=== PATIENT | male | born 1980 | race Caucasian/White ===

== ENCOUNTER 2017-07-05 08:29 | Emergency (ER) | payer MEDICAID ==
[2017-07-05 08:40] VITALS: BP 156/98
--- NOTE | 2017-07-05 09:03 | EDM.PDOC ---
ED HPI GENERAL MEDICAL PROBLEM - General Chief Complaint: ENT Problem Stated Complaint: ABSESS TOOTH LT SIDE Time Seen by Provider: 07/05/17 08:50 Source of Information: Reports: Patient History Limitations: Reports: No Limitations - History of Present Illness INITIAL COMMENTS - FREE TEXT/NARRATIVE: 37-year-old male developed left upper dental pain and swelling over the past 12- 24 hours. No fevers or chills, he does have until care and is currently waiting for several extractions and dentures. He is already on 10 mg hydrocodone 4 times daily for chronic pain. Onset: Gradual (Over the past 12-24 hours) Severity: Moderate Associated Symptoms: Reports: No Other Symptoms Tooth/Teeth Pain Score (Numeric/FACES): 6 - Related Data Allergies Allergy/AdvReac Type Severity Reaction Status Date / Time No Known Allergies Allergy Verified 07/05/17 08:47 Home Meds: Home Meds Melatonin 10 mg PO BEDTIME PRN 06/20/14 [History] [place]-3 Fatty Acids/Fish Oil [Fish Oil 1,200 mg Softgel] 1,200 mg PO DAILY 06/20 [History] Naproxen [Take Home: Naproxen 500 MG, 4 Tab Pack] 2 tab PO DAILY 03/08/16 [ History] Hydrocodone/Acetaminophen [Hydrocodon-Acetaminophn 10-325] 1 tab PO Q4H PRN 12/15 [History] Pregabalin [Lyrica] 100 mg PO BID 07/05/17 [History] Past Medical History - Past Health History Medical/Surgical History: Denies Medical/Surgical History Musculoskeletal History: Reports: Back Pain, Chronic Neurological History: Reports: Concussion Psychiatric History: Reports: Bipolar, Depression - Infectious Disease History Infectious Disease History: Reports: Chicken Pox - Past Surgical History HEENT Surgical History: Reports: Oral Surgery Social & Family History - Tobacco Use Smoking Status *Q: Current Every Day Smoker Years of Tobacco use: 19 Packs/Tins Daily: 1.5 Used Tobacco, but Quit: No Second Hand Smoke Exposure: Yes - Caffeine Use Caffeine Use: Reports: Coffee, Energy Drinks - Alcohol Use Days Per Week of Alcohol Use: 0 - Recreational Drug Use Recreational Drug Use: No Drug Use in Last 12 Months: Yes Recreational Drug Type: Reports: Marijuana/Hashish, Methamphetamine Recreational Drug Use Frequency: Binges ED ROS ENT - Review of Systems Review Of Systems: See Below Constitutional: Denies: Fever, Chills Respiratory: Denies: Shortness of Breath GI/Abdominal: Denies: Nausea, Vomiting Skin: Denies: Bruising, Erythema Neurological: Denies: Headache ED EXAM, ENT - Physical Exam Exam: See Below Exam Limited By: No Limitations General Appearance: Alert, No Apparent Distress (Patient is uncomfortable but not distressed) Mouth/Throat: Other (Patient has widespread advanced dental decay. There is erythema and irritation around the mucosa and gums of the left maxilla, a mild amount of ducal swelling and tenderness. No fluctuance or erythema.) Course - Vital Signs Last Recorded V/S: Last Vital Signs Temp 96.1 F 07/05/17 08:46 Pulse 88 07/05/17 08:46 Resp 16 07/05/17 08:46 BP 156/98 H 07/05/17 08:46 Pulse Ox 100 07/05/17 08:46 - Re-Assessments/Exams Free Text/Narrative Re-Assessment/Exam: 07/05/17 09:01 Patient was placed on penicillin VK 500 4 times daily. He asked for "something for pain", he is already taking large amounts of hydrocodone so he was given ketorolac 10 mg to take 3-4 times a day. He can return in 2-3 days if not improving satisfactorily. Departure - Departure Time of Disposition: 09:10 Disposition: Home, Self-Care 01 Condition: Good Clinical Impression: Dental abscess - Discharge Information Instructions: Dental Abscess, [id number] Referrals: Kj Cheng MD [Primary Care Provider] - Forms: ED Department Discharge Care Plan Goals: Take penicillin 4 times a day, moist heat to the tender area to increase blood flow should help. Continue with your hydrocodone for pain control and add ketorolac as needed. Stop naproxen if you're taking ketorolac. Recheck in 2-3 days if not improving satisfactorily.
== END 2017-07-05 09:10 | disposition home or self-care (01) ==
LOC: JP.ED 08:29
DX: K04.7 Periapical abscess without sinus (principal); K02.9 Dental caries, unspecified; F17.210 Nicotine dependence, cigarettes, uncomplicated
CPT/HCPCS: 99283

== ENCOUNTER 2017-07-06 07:39 | Emergency (ER) | payer MEDICAID ==
[2017-07-06 07:55] VITALS: BP 137/93
[2017-07-06] MEDS ORDERED: methylPREDNISolone Sodium Succinate 125 MG/2 ML SDV IVPUSH ONE (08:12)
[2017-07-06] MEDS ORDERED: cefTRIAXone 2 GM in Sodium Chloride 0.9% 50 ML IV ONE (08:12)
--- NOTE | 2017-07-06 08:40 | EDM.PDOC ---
ED HPI GENERAL MEDICAL PROBLEM - General Chief Complaint: ENT Problem Stated Complaint: ABSESS TOOTH/NOT GETTING BETTER Time Seen by Provider: 07/06/17 08:20 Source of Information: Reports: Patient History Limitations: Reports: No Limitations - History of Present Illness INITIAL COMMENTS - FREE TEXT/NARRATIVE: 37-year-old male who was seen yesterday with some swelling and tenderness on the left anterior maxillary area from advanced dental caries and likely dental abscess was started on an penicillin. He returns today because of increased pain and swelling. No fevers or chills. Onset: Gradual Location: Reports: Face Severity: Mild Associated Symptoms: Reports: Headaches. Denies: Fever/Chills Tooth/Teeth Pain Score (Numeric/FACES): 7 - Related Data Allergies Allergy/AdvReac Type Severity Reaction Status Date / Time No Known Allergies Allergy Verified 07/06/17 07:42 Home Meds: Home Meds Melatonin 10 mg PO BEDTIME PRN 06/20/14 [History] [place]-3 Fatty Acids/Fish Oil [Fish Oil 1,200 mg Softgel] 1,200 mg PO DAILY 06/20 [History] Naproxen [Take Home: Naproxen 500 MG, 4 Tab Pack] 2 tab PO DAILY 03/08/16 [ History] Hydrocodone/Acetaminophen [Hydrocodon-Acetaminophn 10-325] 1 tab PO Q4H PRN 12/15 [History] Pregabalin [Lyrica] 100 mg PO BID 07/05/17 [History] Past Medical History - Past Health History Medical/Surgical History: Denies Medical/Surgical History Musculoskeletal History: Reports: Back Pain, Chronic Neurological History: Reports: Concussion Psychiatric History: Reports: Bipolar, Depression - Infectious Disease History Infectious Disease History: Reports: Chicken Pox - Past Surgical History HEENT Surgical History: Reports: Oral Surgery Social & Family History - Tobacco Use Smoking Status *Q: Current Every Day Smoker Years of Tobacco use: 19 Packs/Tins Daily: 1.5 Used Tobacco, but Quit: No Second Hand Smoke Exposure: Yes - Caffeine Use Caffeine Use: Reports: Coffee, Energy Drinks - Alcohol Use Days Per Week of Alcohol Use: 0 - Recreational Drug Use Recreational Drug Use: Yes Drug Use in Last 12 Months: Yes Recreational Drug Type: Reports: Marijuana/Hashish, Methamphetamine Recreational Drug Use Frequency: Binges ED ROS ENT - Review of Systems Review Of Systems: See Below Constitutional: Denies: Fever, Chills HEENT: Reports: Dental Pain, Ear Pain, Vision Change (Left eye is intermittently "blurry") Respiratory: Reports: No Symptoms Musculoskeletal: Reports: Other (Chronic back and chronic left leg pain) Skin: Denies: Erythema ED EXAM, ENT - Physical Exam Exam: See Below Exam Limited By: No Limitations General Appearance: Alert, No Apparent Distress (Looks uncomfortable but not distressed) Head: Facial Tenderness (He does have tenderness over the inflamed area on the left paranasial area and maxillary area but it feels more edematous than fluctuant. It is not warm or significantly erythematous.) Course - Vital Signs Last Recorded V/S: Last Vital Signs Temp 97.2 F 07/06/17 07:54 Pulse 86 07/06/17 07:54 Resp 16 07/06/17 07:54 BP 137/93 H 07/06/17 07:54 Pulse Ox 95 07/06/17 07:54 - Orders/Labs/Meds Meds: Medications Discontinued Medications Generic Name Dose Route Start Last Admin Trade Name Maria Esther PRN Reason Stop Dose Admin Ceftriaxone Sodium 2 gm/ 50 mls @ 100 mls/hr 07/06/17 08:12 07/06/17 08:35 Sodium Chloride IV 07/06/17 08:41 100 mls/hr ONETIME ONE Administration Methylprednisolone Sodium Succinate 125 mg 07/06/17 08:12 07/06/17 08:32 Solu-Medrol IVPUSH 07/06/17 08:13 125 mg ONETIME ONE Administration - Re-Assessments/Exams Free Text/Narrative Re-Assessment/Exam: 07/06/17 08:38 Left maxillary dental abscess is not responding quickly to oral antibiotics. Patient was given 2 g of IV Rocephin, 125 mg of IV Solu-Medrol and will return tomorrow for reexamination and IV medications. If not responding a dental referral will become more urgent. He will continue his penicillin. Departure - Departure Time of Disposition: 09:17 Disposition: Home, Self-Care 01 Condition: Good Clinical Impression: Dental abscess - Discharge Information Instructions: Dental Abscess, [id number] Referrals: PCP,None [Primary Care Provider] - Forms: ED Department Discharge Care Plan Goals: Continue your pain medications as prescribed, return tomorrow morning for reevaluation and another IV round of antibiotics. Also continue penicillin as prescribed.
== END 2017-07-06 09:17 | disposition home or self-care (01) ==
LOC: JP.ED 07:39
DX: K04.7 Periapical abscess without sinus (principal); Z79.899 Other long term (current) drug therapy; F17.210 Nicotine dependence, cigarettes, uncomplicated
CPT/HCPCS: 96365; 96375; 99283; J0696; J2930; J7050

== ENCOUNTER 2020-03-27 18:55 | Emergency (ER) | payer MEDICAID ==
[2020-03-27] MEDS ORDERED: Ketorolac 60 MG/2 ML SDV IM ONE (19:25)
--- NOTE | 2020-03-27 19:30 | EDM.PDOC ---
ED HPI GENERAL MEDICAL PROBLEM - General Chief Complaint: Laceration Stated Complaint: CUT FINGER AT HOME Time Seen by Provider: 03/27/20 19:04 Source of Information: Reports: Patient, Family, RN Notes Reviewed History Limitations: Reports: No Limitations - History of Present Illness INITIAL COMMENTS - FREE TEXT/NARRATIVE: 40-year-old gentleman presents emergency department today with a laceration to digit #4 on his left hand he injured himself when he was working on a magazine grinder loader wheel the wheel itself broke pieces shattered and cut the distal aspect of digit #4 lateral, no functional complaints Left Finger-Ring Pain Score (Numeric/FACES): 7 - Related Data Allergies Allergy/AdvReac Type Severity Reaction Status Date / Time No Known Allergies Allergy Verified 03/27/20 19:10 Home Meds: Home Meds [place]-3 Fatty Acids/Fish Oil [Fish Oil 1,200 mg Softgel] 1,200 mg PO DAILY 06/20/14 [History] Hydrocodone/Acetaminophen [Hydrocodon-Acetaminophn 10-325] 1 tab PO Q4H PRN 07/05/17 [History] lisinopriL [Prinivil] 1 tab PO DAILY 03/27/20 [History] Past Medical History Cardiovascular History: Reports: Hypertension Musculoskeletal History: Reports: Back Pain, Chronic Neurological History: Reports: Concussion Psychiatric History: Reports: Bipolar, Depression Endocrine/Metabolic History: Reports: Obesity/BMI 30+ - Infectious Disease History Infectious Disease History: Reports: Chicken Pox - Past Surgical History HEENT Surgical History: Reports: Oral Surgery Social & Family History - Tobacco Use Smoking Status *Q: Current Every Day Smoker Years of Tobacco use: 24 Packs/Tins Daily: 1.5 Used Tobacco, but Quit: No Second Hand Smoke Exposure: Yes - Caffeine Use Caffeine Use: Reports: Energy Drinks, Tea - Recreational Drug Use Recreational Drug Use: No ED ROS GENERAL - Review of Systems Review Of Systems: See Below Musculoskeletal: Reports: Hand Pain Skin: Reports: Wound ED EXAM, SKIN/RASH Exam: See Below Text/Narrative:: Examination left hand he does have a 1 cm laceration lateral aspect digit #4 distal portion it is partially through the dermis however it is slightly torn up with a skin flap difficult to realign, radial pulses +2 full range of motion of digits sensation is intact Exam Limited By: No Limitations General Appearance: Alert, WD/WN, No Apparent Distress ED SKIN PROCEDURES - Laceration/Wound Repair Left Digit - 4th (Ring) Appearance: Subcutaneous, Irregular Distal NVT: Neuro & Vascular Intact, No Tendon Injury Anesthetic Type: Digital Local Anesthesia - Lidocaine (Xylocaine): 1% Plain Local Anesthetic Volume: 2cc Skin Prep: Isopropyl Alcohol (Alcohol) Exploration/Debridement/Repair: Wound Explored, In a Bloodless Field, Explored to Base Closed with: Dermabond Lac/Wound length In cm: 1 Tetanus Status Addressed: Yes (2016) Complications: No Course - Vital Signs Last Recorded V/S: Last Vital Signs Temp 97.9 F 03/27/20 19:19 Pulse 84 03/27/20 19:19 Resp 16 03/27/20 19:19 BP 166/88 H 03/27/20 19:19 Pulse Ox 92 L 03/27/20 19:19 - Orders/Labs/Meds Orders: Active Orders 24 hr Category Date Time Status Fingers Fourth Digit Lt F3 [CR] Stat Exams 03/27/20 19:26 Taken Meds: Medications Discontinued Medications Generic Name Dose Route Start Last Admin Trade Name Maria Esther PRN Reason Stop Dose Admin Bacitracin 1 dose 03/27/20 19:54 03/27/20 20:01 Bacitracin Oint 1 Gm TOP 03/27/20 19:55 1 dose ONETIME ONE Administration Ketorolac Tromethamine 60 mg 03/27/20 19:25 03/27/20 19:37 Toradol IM 03/27/20 19:26 60 mg ONETIME ONE Administration Lidocaine HCl 5 ml 03/27/20 19:54 03/27/20 20:02 Xylocaine-Mpf 1% INJECT 03/27/20 19:55 5 ml ONETIME ONE Administration Departure - Departure Time of Disposition: 20:25 Disposition: Home, Self-Care 01 Condition: Good Clinical Impression: Laceration of left ring finger Qualifiers: Encounter type: initial encounter Damage to nail status: without damage Foreign body presence: without foreign body Qualified Code(s): S61.215A - Laceration without foreign body of left ring finger without damage to nail, initial encounter - Discharge Information Instructions: Laceration Care, Adult Referrals: Kj Cheng MD [Primary Care Provider] - Forms: ED Department Discharge Additional Instructions: Follow wound care instruction sheet, follow-up primary care as needed Sepsis Event Note (ED) - Evaluation Sepsis Screening Result: No Definite Risk - Focused Exam Vital Signs: Vital Signs Temp Pulse Resp BP Pulse Ox 03/27/20 19:19 97.9 F 84 16 166/88 H 92 L - My Orders Last 24 Hours: My Active Orders 03/27/20 19:26 Fingers Fourth Digit Lt F3 [CR] Stat - Assessment/Plan Last 24 Hours: My Active Orders 03/27/20 19:26 Fingers Fourth Digit Lt F3 [CR] Stat Plan: Assessment Acuity = acute Site and laterality = 1 cm laceration digit #4 left hand distal aspect Etiology = trauma with a magazine grinder loader Manifestations = none Location of injury = Home Lab values = x-ray I did not appreciate any foreign body Plan Follow-up primary care as needed This note was dictated using [employer] voice recognition software please call with any questions on syntax or grammar.
[2020-03-27 19:41] VITALS: BP 166/88; PULSE 84
[2020-03-27] MEDS: Bacitracin Oint 1 GM U/D Packet TOP ONE ×2 (20:01→20:25)
--- NOTE | 2020-03-28 08:56 | CR ---
Fingers Fourth Digit Lt F3 CLINICAL HISTORY: Foreign body, trauma FINDINGS: There is soft tissue disruption at the distal fourth digit. There is a small ossific defect along the palmar base of the fourth distal phalanx. No radiopaque foreign body is identified IMPRESSION: Laceration Small cortical defect near the base of the fourth distal phalanx could represent tiny fracture. No foreign body
== END 2020-03-27 20:40 | disposition home or self-care (01) ==
LOC: JP.ED 18:55
DX: S61.215A Laceration without foreign body of left ring finger without damage to nail, initial encounter (principal); I10 Essential (primary) hypertension; E66.9 Obesity, unspecified; F17.210 Nicotine dependence, cigarettes, uncomplicated; Z68.36 Body mass index [BMI] 36.0-36.9, adult; Z79.899 Other long term (current) drug therapy; W31.89XA Contact with other specified machinery, initial encounter
CPT/HCPCS: 12001; 73140; 96372; 99283; J1885; J2001; 99282

== ENCOUNTER 2023-02-27 20:12 | Emergency (ER) | payer MEDICAID ==
[2023-02-27 20:41] VITALS: BP 133/83; PULSE 83
[2023-02-27] MEDS ORDERED: Bacitracin Oint 1 GM U/D Packet TOP ONE (20:50)
[2023-02-27] MEDS ORDERED: Lidocaine 1% with EPINEPHrine 1:100,000 50 ML MDV SUBCUT STA (20:50)
[2023-02-27] MEDS ORDERED: Ketorolac 30 MG/ML SDV IM ONE (20:50)
== END 2023-02-27 22:00 | disposition home or self-care (01) ==
LOC: JP.ED 20:12
DX: S61.011A Laceration without foreign body of right thumb without damage to nail, initial encounter (principal); I10 Essential (primary) hypertension; E66.9 Obesity, unspecified; Z68.32 Body mass index [BMI] 32.0-32.9, adult; W22.8XXA Striking against or struck by other objects, initial encounter
CPT/HCPCS: 12001; 99282

== ENCOUNTER 2025-03-20 20:56 | Emergency (ER) | payer MEDICAID ==
[2025-03-20 23:07] VITALS: BP 164/103; PULSE 76
[2025-03-20 23:59] LABS: A/G RATIO 0.9 (1.2-2.2); ALANINE AMINOTRANSFERASE,ALT 39 U/L (12-78); ASPARTATE AMNIOTRANSFERASE,AST 22 U/L (15-37); BILIRUBIN TOTAL 0.5 mg/dL (0.2-1.0); BLOOD UREA NITROGEN,BUN 14 mg/dL (7-18); CARBON DIOXIDE,CO2 30 mmol/L (21-32); CHLORIDE,CL 100 mmol/L (100-108); CREATININE 0.8 mg/dL (0.8-1.3); EST CRCL DRUG DOSING (CG) 115.19 mL/min; ESTIMATED GFR 113 mL/min (>60); GLUCOSE RANDOM 116 mg/dL (74-106); POTASSIUM,K 3.9 mmol/L (3.6-5.2); PROTEIN TOTAL,TP 7.9 g/dL (6.4-8.2); SODIUM,NA 139 mmol/L (140-148)
[2025-03-21 00:04] LABS: PLATELET COUNT,PLT 261 K/uL (130-375); RED BLOOD CELL COUNT 5.05 M/uL (4.14-5.76); WHITE BLOOD CELL COUNT,WBC 8.5 K/uL (3.2-11.0)
[2025-03-21 00:16] LABS: ATYPICAL LYMPHOCYTES RARE; BASOPHILS ABSOLUTE MAN 0.09 K/uL (0.00-0.10); BASOPHILS PERCENT MAN 1 % (0-1); EOSINOPHILS ABSOLUTE MAN 0.34 K/uL (0.00-0.40); EOSINOPHILS PERCENT MAN 4 % (2-4); LYMPHOCYTES ABSOLUTE MAN 2.64 K/uL (0.8-3.3); LYMPHOCYTES PERCENT MAN 31 % (24-44); MONOCYTES ABSOLUTE MAN 0.68 K/uL (0.20-0.90); MONOCYTES PERCENT MAN 8 % (2-6); NEUTROPHILS ABSOLUTE MAN 4.76 K/uL (1.0-7.6); SEG NEUTROPHILS PERCENT MAN 56 % (36-66)
== END 2025-03-21 00:25 | disposition home or self-care (01) ==
LOC: JP.ED 20:56
DX: L29.9 Pruritus, unspecified (principal); I10 Essential (primary) hypertension; E66.9 Obesity, unspecified; Z79.899 Other long term (current) drug therapy; Z68.33 Body mass index [BMI] 33.0-33.9, adult
CPT/HCPCS: 36415; 80053; 85025; 99283